=== PATIENT | female | born 1995 | race Caucasian/White ===

== ENCOUNTER 2017-04-20 14:24 | Emergency (ER) | payer OTHER ==
--- NOTE | 2017-04-20 18:51 | RAD ---
Indication: Headaches. CT of the brain was performed without IV contrast. Ventricular structures are midline. No midline shift is noted. The extra-axial spaces are unremarkable. There is no evidence of intracranial mass or hemorrhage. No other high or low density lesions are identified. Mastoid air cells and paranasal sinuses are otherwise unremarkable. IMPRESSION: No intracranial mass or hemorrhage is noted.
[2017-04-20 19:12] VITALS: BP 122/66
--- NOTE | 2017-04-20 22:16 | ED ---
Juan Jay Gabriel, scribed for Sammie Lindsey MD on 04/20/17 at 1749 . Throat Pain/Nasal Congestion - HPI Summary HPI Summary: This patient is a 21 year old F presenting to [facility] with a chief complaint of vision disturbances since 900 today. Episode last 30 minutes and describes her vision as rapidly shaking back and forth. Patient reports nausea, dizziness, and hard time focusing eyes. Patient denies WU, vision changes (currently), ear ache, CP, SOB, ABD pain, back pain, dysuria, edema, hematuria, rashes, numbness , and recently illness. Patient reports similar symptoms and reports them being worse today. She gets the episodes relatively often, had one yesterday. No alcohol today. - History of Current Complaint Chief Complaint: EDEyeProblem Hx Obtained From: Patient Onset/Duration: Lasting Minutes - 30, Resolved Severity: Moderate - Allergies/Home Medications Allergies/Adverse Reactions: Allergies Allergy/AdvReac Type Severity Reaction Status Date / Time DAIRY Allergy Rash Uncoded 04/20/17 14:57 GLUTIN Allergy Rash Uncoded 04/20/17 14:58 SOY Allergy Rash Uncoded 04/20/17 14:58 PMH/Surg Hx/FS Hx/Imm Hx Previously Healthy: Yes Cardiovascular History: Denies: Hx Hypertension Respiratory History: Denies: Hx Asthma Musculoskeletal History: Denies: Hx Arthritis Neurological History: Denies: Hx Migraine Psychiatric History: 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 Denies: Hx Anxiety - Surgical History Surgery Procedure, Year, and Place: appendectomy 2014 - Immunization History Immunizations Up to Date: Yes Infectious Disease History: No Infectious Disease History: Denies: Traveled Outside the [place] in Last 30 Days - Family History Known Family History: Positive: Diabetes Negative: Cardiac Disease, Hypertension - Social History Occupation: Student Lives: Dormitory/Roommates Alcohol Use: Weekly Substance Use Type: Reports: None Smoking Status (MU): Never Smoked Tobacco Review of Systems Positive: Blurred Vision, Other - shaking vision, difficulty focusing vision Negative: Sore Throat, Ear Ache Negative: Chest Pain Negative: Shortness Of Breath Positive: Nausea. Negative: Abdominal Pain Negative: dysuria, hematuria Negative: Edema Negative: Rash Neurological: Other - dizziness Negative: Headache, Numbness All Other Systems Reviewed And Are Negative: No Physical Exam - Summary Physical Exam Summary: Appearance: Alert, conversive, nontoxic appearing. [place] is normal Skin: Warm, dry, no mottling, no rashes, no contusions HEENT: EOMI, PERRL, moist mucous membranes Neck: No masses on the neck, supple Respiratory: Clear to auscultation, breath sounds present, no rales, no rhonchi , no wheezes Cardiovascular: RRR, pulses are symmetrical in both lower and upper extremities Abdomen: Soft, non-tender Bowel Sounds: Present Musculoskeletal: No CVA tenderness, no obvious deformity, moving all extremities in a grossly normal manner Neurological: A&Ox3, CN II-XII Intact, moving all extremities symmetrically. No dysdiadochokinesia Psychiatric: Normal affect and mood Triage Information Reviewed: Yes Vital Signs On Initial Exam: Initial Vitals Temp Pulse Resp BP Pulse Ox 98.1 F 68 15 115/72 99 04/20/17 14:59 04/20/17 14:59 04/20/17 14:59 04/20/17 14:59 04/20/17 14:59 Vital Signs Reviewed: Yes Diagnostics - Vital Signs Vital Signs Temp Pulse Resp BP Pulse Ox 04/20/17 14:59 98.1 F 68 15 115/72 99 - Laboratory Lab Statement: Any lab studies that have been ordered have been reviewed, and results considered in the medical decision making process. - CT CT Head CT Interpretation Completed By: Radiologist - No intracranial mass or hemorrhage is noted. ED physician has reviewed this radiology report and agrees. EENT Course/Dx - Course Assessment/Plan: This patient is a 21 year old F presenting to [facility] with a chief complaint of vision disturbances since 900 today. Episode last 30 minutes and describes her vision as rapidly shaking back and forth. CT Head reveals, per radiologist, No intracranial mass or hemorrhage is noted. Patients symptoms are concerning for migraine follow up pcp and neurology. Pt is asymptomatic. I discussed with pt the fact that this may be a migraine. This is not a first occurrence of these symptoms. She states that she has had them in the past. However, she felt that this time it lasted a bit longer. I encouraged her to f/u with pcp and neurology. pt voiced understanding of discharge instructions. Patient will be discharged and follow up from neurology. The patient is agreeable with this plan. - Diagnoses Provider Diagnoses: Visual disturbances Discharge - Discharge Plan Condition: Stable Disposition: HOME Patient Education Materials: Blurred Vision (ED) Referrals: [facility] [Primary Care Provider] - Additional Instructions: Follow up with your primary care physician or your [facility] doctor within 1 week. Discuss with your doctor the need for follow up with neurology. Return if worse or any new symptoms. The documentation as recorded by the Juan poon Gabriel accurately reflects the service I personally performed and the decisions made by me, Sammie Lindsey MD.
== END 2017-04-20 19:12 | disposition home or self-care (01) ==
LOC: ED 14:24
DX: H53.8 Other visual disturbances (principal); R11.0 Nausea
CPT/HCPCS: 70450; 99282